=== PATIENT | female | born 2000 | race Caucasian/White ===

== ENCOUNTER 2020-11-24 15:47 | Inpatient (IN) | payer OTHER ==
[~2020-11-24] VITALS: Ht 157.5 cm; Wt 71.2 kg
[2020-11-24 20:00] VITALS: BP 122/68
[2020-11-24] MEDS ORDERED: CYCLOBENZAPRINE HCL 10 MG TABLET PO PRN (20:00)
[2020-11-24] MEDS ORDERED: ONDANSETRON HCL 4 MG TABLET PO PRN (20:00)
[2020-11-24] MEDS ORDERED: OxyCODONE HCL 10 MG IR TABLET PO PRN (20:00)
[2020-11-24] MEDS ORDERED: ACETAMINOPHEN 500 MG TABLET PO PRN (20:00)
[2020-11-24 20:44] VITALS: BP 122/68
[2020-11-24] MEDS: GABAPENTIN 300 MG CAPSULE PO SCH (21:04)
[2020-11-24] MEDS: DOCUSATE SODIUM 100 MG CAPSULE PO SCH (21:04)
[2020-11-24] MEDS: AMITRIPTYLINE HCL 10 MG TABLET PO SCH (21:05)
[2020-11-24] MEDS: OxyCODONE HCL 5 MG IR TABLET PO PRN (22:37)
[2020-11-24 23:37] VITALS: BP 110/62
[2020-11-24] MEDS ORDERED: SODIUM CL IRRIG SOLN BOTTLE 250 ML IRRIG ONE (23:40)
[2020-11-25 07:09] LABS: BASOPHILS % (AUTO) 0.5 % (0.0-2.0); EOSINOPHILS % (AUTO) 6.9 % (1.0-6.0); HEMATOCRIT 21.8 % (36-46); HEMOGLOBIN 7.2 g/dL (12.0-16.0); LYMPHOCYTES # (AUTO) 1.2 K/uL (1.0-4.8); LYMPHOCYTES % (AUTO) 15.5 % (22.0-44.0); MEAN CORPUSCULAR VOLUME 88 fL (80-100); MONOCYTES # (AUTO) 0.8 K/uL (0.1-1.0); MONOCYTES % (AUTO) 9.7 % (2.0-9.0); NEUTROPHILS # (AUTO) 5.3 K/uL (1.8-7.7); NEUTROPHILS % (AUTO) 67.4 % (40.0-70.0); PLATELET COUNT (AUTO) 295 K/uL (150-450); RED BLOOD CELL COUNT(AUTO) 2.47 MIL/uL (4.00-5.20); RED CELL DISTRIBUTION WIDTH 13.6 % (11.5-14.5)
[2020-11-25 07:18] LABS: ALANINE AMINOTRANSFERASE 50 U/L (12-78); ALBUMIN 3.1 g/dL (3.4-5.0); ALKALINE PHOSPHATASE 43 U/L (46-116); ANION GAP 9 mmol/L (8-16); ASPARTATE AMINOTRANSFERASE 52 U/L (15-37); BILIRUBIN,TOTAL 0.5 mg/dL (0.1-1.0); CALCIUM, TOTAL 8.7 mg/dL (8.8-10.5); CARBON DIOXIDE 25 mmol/L (22-29); CHLORIDE 106 mmol/L (98-107); CREATININE 0.77 mg/dL (0.60-1.30); GLOMERULAR FILTR. RATE CALC > 60 mL/min (>60); GLUCOSE,RANDOM 100 mg/dL (70-110); POTASSIUM 4.2 mmol/L (3.5-5.1); SODIUM SERUM 140 mmol/L (136-145); TOTAL PROTEIN, SERUM 6.5 g/dL (6.4-8.2); UREA NITROGEN, BLOOD 14 mg/dL (7-18)
[2020-11-25 07:44] VITALS: BP 105/60
[2020-11-25] MEDS: GABAPENTIN 300 MG CAPSULE PO SCH ×3 (08:47→20:07)
[2020-11-25] MEDS: ASPIRIN 325 MG TABLET PO SCH (08:47)
[2020-11-25] MEDS: POLYETHYLENE GLYCOL 3350 17 GM PACKET PO SCH (08:48)
[2020-11-25] MEDS: DOCUSATE SODIUM 100 MG CAPSULE PO SCH ×2 (08:48→20:13)
[2020-11-25] MEDS ORDERED: MAGNESIUM CITRATE 300 ML ORAL SOLUTION PO ONE (11:45)
[2020-11-25] MEDS: IBUPROFEN 800 MG TABLET PO PRN (13:34)
[2020-11-25 16:14] VITALS: BP 104/55
[2020-11-25] MEDS: AMITRIPTYLINE HCL 10 MG TABLET PO SCH (20:03)
[2020-11-25] MEDS ORDERED: LUBIPROSTONE 24 MCG CAPSULE PO SCH (21:00)
[2020-11-26 03:30] VITALS: BP 116/58
[2020-11-26] MEDS: IBUPROFEN 800 MG TABLET PO PRN ×2 (05:28→15:11)
[2020-11-26] MEDS: LUBIPROSTONE 24 MCG CAPSULE PO SCH ×2 (07:30→09:21)
[2020-11-26] MEDS: POLYETHYLENE GLYCOL 3350 17 GM PACKET PO SCH (09:00)
[2020-11-26] MEDS: DOCUSATE SODIUM 100 MG CAPSULE PO SCH ×2 (09:22→20:38)
[2020-11-26] MEDS: GABAPENTIN 300 MG CAPSULE PO SCH ×3 (09:22→20:38)
[2020-11-26] MEDS: ASPIRIN 325 MG TABLET PO SCH (09:22)
[2020-11-26 09:30] VITALS: BP 121/71
[2020-11-26] MEDS: OxyCODONE HCL 5 MG IR TABLET PO PRN (11:52)
[2020-11-26 13:16] LABS: BASOPHILS % (AUTO) 0.6 % (0.0-2.0); EOSINOPHILS % (AUTO) 4.8 % (1.0-6.0); HEMATOCRIT 25.8 % (36-46); HEMOGLOBIN 8.6 g/dL (12.0-16.0); LYMPHOCYTES # (AUTO) 1.4 K/uL (1.0-4.8); MEAN CORPUSCULAR HEMOGLOBIN 28.7 pg (26.0-34.0); MEAN CORPUSCULAR HGB CONC 33.4 G/dL (31.0-37.0); MEAN CORPUSCULAR VOLUME 86 fL (80-100); MONOCYTES # (AUTO) 0.5 K/uL (0.1-1.0); MONOCYTES % (AUTO) 4.8 % (2.0-9.0); NEUTROPHILS # (AUTO) 7.4 K/uL (1.8-7.7); NEUTROPHILS % (AUTO) 75.8 % (40.0-70.0); PLATELET COUNT (AUTO) 402 K/uL (150-450); RED CELL DISTRIBUTION WIDTH 14.3 % (11.5-14.5)
[2020-11-26 15:11] VITALS: BP 126/65
[2020-11-26] MEDS: FERROUS GLUCONATE 324 MG TABLET PO SCH (17:37)
[2020-11-26] MEDS: ACETAMINOPHEN 325 MG TABLET PO PRN (18:41)
[2020-11-26] MEDS: AMITRIPTYLINE HCL 10 MG TABLET PO SCH (20:38)
[2020-11-27] VITALS: BP 94/55
[2020-11-27] MEDS ORDERED: AMIT75 PO (03:11)
[2020-11-27] MEDS: FERROUS GLUCONATE 324 MG TABLET PO SCH ×2 (07:17→16:53)
[2020-11-27 07:26] LABS: BASOPHILS % (AUTO) 0.4 % (0.0-2.0); EOSINOPHILS % (AUTO) 6.4 % (1.0-6.0); HEMATOCRIT 23.1 % (36-46); HEMOGLOBIN 7.4 g/dL (12.0-16.0); LYMPHOCYTES # (AUTO) 1.1 K/uL (1.0-4.8); MEAN CORPUSCULAR HEMOGLOBIN 28.9 pg (26.0-34.0); MEAN CORPUSCULAR HGB CONC 32.3 G/dL (31.0-37.0); MEAN CORPUSCULAR VOLUME 90 fL (80-100); MONOCYTES # (AUTO) 0.8 K/uL (0.1-1.0); MONOCYTES % (AUTO) 8.8 % (2.0-9.0); NEUTROPHILS # (AUTO) 6.2 K/uL (1.8-7.7); NEUTROPHILS % (AUTO) 71.4 % (40.0-70.0); PLATELET COUNT (AUTO) 363 K/uL (150-450); RED BLOOD CELL COUNT(AUTO) 2.58 MIL/uL (4.00-5.20); RED CELL DISTRIBUTION WIDTH 14.9 % (11.5-14.5)
[2020-11-27 08:30] VITALS: BP 108/63
[2020-11-27] MEDS: ASPIRIN 325 MG TABLET PO SCH (08:34)
[2020-11-27] MEDS: DOCUSATE SODIUM 100 MG CAPSULE PO SCH ×2 (08:34→20:26)
[2020-11-27] MEDS: IBUPROFEN 800 MG TABLET PO PRN ×2 (08:34→16:30)
[2020-11-27] MEDS: GABAPENTIN 300 MG CAPSULE PO SCH ×3 (08:34→20:26)
[2020-11-27] MEDS ORDERED: AMIT10TA6 PO (11:12)
[2020-11-27] MEDS: ACETAMINOPHEN 325 MG TABLET PO PRN (12:34)
[2020-11-27 15:20] VITALS: BP 123/70
[2020-11-27] MEDS: FAMOTIDINE 20 MG TABLET PO SCH (16:29)
[2020-11-27] MEDS: AMITRIPTYLINE HCL 10 MG TABLET PO SCH (20:26)
[2020-11-28] MEDS ORDERED: ASPI-989 PO (03:14)
[2020-11-28] MEDS ORDERED: DOCU-275 PO (03:14)
[2020-11-28] MEDS ORDERED: GABA-1181 PO (03:14)
[2020-11-28] MEDS: FAMOTIDINE 20 MG TABLET PO SCH ×2 (05:55→17:24)
[2020-11-28 06:00] VITALS: BP 104/58
[2020-11-28 08:00] VITALS: BP 98/52
[2020-11-28] MEDS: ASPIRIN 325 MG TABLET PO SCH (08:25)
[2020-11-28] MEDS: FERROUS GLUCONATE 324 MG TABLET PO SCH ×2 (08:25→17:24)
[2020-11-28] MEDS: DOCUSATE SODIUM 100 MG CAPSULE PO SCH ×2 (08:26→20:29)
[2020-11-28] MEDS: GABAPENTIN 300 MG CAPSULE PO SCH ×3 (08:26→20:28)
[2020-11-28] MEDS: IBUPROFEN 800 MG TABLET PO PRN ×2 (08:27→17:28)
[2020-11-28 16:33] VITALS: BP 128/68
[2020-11-28] MEDS: AMITRIPTYLINE HCL 10 MG TABLET PO SCH (20:28)
[2020-11-28] MEDS: ACETAMINOPHEN 325 MG TABLET PO PRN (21:34)
[2020-11-29 06:06] VITALS: BP 109/62
[2020-11-29 07:17] LABS: BASOPHILS % (AUTO) 0.5 % (0.0-2.0); EOSINOPHILS % (AUTO) 6.7 % (1.0-6.0); HEMATOCRIT 23.7 % (36-46); HEMOGLOBIN 7.9 g/dL (12.0-16.0); LYMPHOCYTES # (AUTO) 1.6 K/uL (1.0-4.8); LYMPHOCYTES % (AUTO) 15.1 % (22.0-44.0); MEAN CORPUSCULAR HEMOGLOBIN 29.7 pg (26.0-34.0); MEAN CORPUSCULAR HGB CONC 33.2 G/dL (31.0-37.0); MEAN CORPUSCULAR VOLUME 90 fL (80-100); MONOCYTES # (AUTO) 0.8 K/uL (0.1-1.0); MONOCYTES % (AUTO) 7.5 % (2.0-9.0); NEUTROPHILS # (AUTO) 7.3 K/uL (1.8-7.7); NEUTROPHILS % (AUTO) 70.2 % (40.0-70.0); PLATELET COUNT (AUTO) 459 K/uL (150-450); RED BLOOD CELL COUNT(AUTO) 2.64 MIL/uL (4.00-5.20); RED CELL DISTRIBUTION WIDTH 15.3 % (11.5-14.5)
[2020-11-29 07:29] VITALS: BP 122/78
[2020-11-29 07:48] LABS: % IRON SATURATION 14.5 % (22-44)
[2020-11-29 08:00] VITALS: BP 122/75
[2020-11-29] MEDS: ASPIRIN 325 MG TABLET PO SCH (09:04)
[2020-11-29] MEDS: GABAPENTIN 300 MG CAPSULE PO SCH ×3 (09:04→20:35)
[2020-11-29] MEDS: DOCUSATE SODIUM 100 MG CAPSULE PO SCH ×2 (09:04→20:35)
[2020-11-29] MEDS: FERROUS GLUCONATE 324 MG TABLET PO SCH ×2 (09:04→17:34)
[2020-11-29] MEDS: FAMOTIDINE 20 MG TABLET PO SCH ×2 (09:04→17:34)
[2020-11-29] MEDS: IBUPROFEN 800 MG TABLET PO PRN ×2 (09:09→17:38)
[2020-11-29] MEDS: ACETAMINOPHEN 325 MG TABLET PO PRN (15:22)
[2020-11-29 17:38] VITALS: BP 128/63
[2020-11-29] MEDS: AMITRIPTYLINE HCL 10 MG TABLET PO SCH (20:35)
[2020-11-30 05:29] VITALS: BP 122/65
[2020-11-30] MEDS: FAMOTIDINE 20 MG TABLET PO SCH ×2 (05:29→17:29)
[2020-11-30] MEDS: GABAPENTIN 300 MG CAPSULE PO SCH ×3 (05:29→20:56)
[2020-11-30] MEDS: IBUPROFEN 800 MG TABLET PO PRN ×2 (05:29→14:15)
[2020-11-30] MEDS ORDERED: ERGOCALCIFEROL (VIT D2) 50,000 UNITS [1,250 MCG] CAPSULE PO SCH (09:00)
[2020-11-30 09:30] VITALS: BP 139/66
[2020-11-30] MEDS: MULTIVITAMINS WITH MINERALS, THERAPEUTIC TABLET PO SCH (09:42)
[2020-11-30] MEDS: FERROUS GLUCONATE 324 MG TABLET PO SCH ×2 (09:42→17:29)
[2020-11-30] MEDS: DOCUSATE SODIUM 100 MG CAPSULE PO SCH ×3 (09:43→21:00)
[2020-11-30] MEDS: ASPIRIN 325 MG TABLET PO SCH (09:43)
[2020-11-30 16:59] VITALS: BP 110/52
[2020-11-30] MEDS: AMITRIPTYLINE HCL 10 MG TABLET PO SCH (20:56)
[2020-11-30] MEDS: ACETAMINOPHEN 325 MG TABLET PO PRN (21:00)
[2020-11-30] MEDS ORDERED: MULT-1239 PO (21:12)
[2020-11-30] MEDS ORDERED: FAMO20 PO (21:12)
[2020-11-30] MEDS ORDERED: FERR325T21 PO (21:12)
[2020-11-30] MEDS ORDERED: ERGO500054 PO (21:12)
[2020-11-30] MEDS ORDERED: IBUP-2071 PO (21:12)
[2020-12-01] VITALS: BP 112/72
[2020-12-01] MEDS: FAMOTIDINE 20 MG TABLET PO SCH (06:08)
[2020-12-01 07:53] VITALS: BP 109/63
[2020-12-01] MEDS: GABAPENTIN 300 MG CAPSULE PO SCH (08:22)
[2020-12-01] MEDS: MULTIVITAMINS WITH MINERALS, THERAPEUTIC TABLET PO SCH (08:22)
[2020-12-01] MEDS: ASPIRIN 325 MG TABLET PO SCH (08:23)
[2020-12-01] MEDS: DOCUSATE SODIUM 100 MG CAPSULE PO SCH (08:23)
[2020-12-01] MEDS: FERROUS GLUCONATE 324 MG TABLET PO SCH (08:23)
[2020-12-01] MEDS: IBUPROFEN 800 MG TABLET PO PRN (08:27)
== END 2020-12-01 12:00 | disposition home or self-care (01) | DRG 534 ==
LOC: 2WR 18:18
PROVIDERS: ADMIT Physical Medicine & Rehabilitation; ATTEND Physical Medicine & Rehabilitation
DX: S72.92XA Unspecified fracture of left femur, initial encounter for closed fracture (principal); E46 Unspecified protein-calorie malnutrition; S92.214A Nondisplaced fracture of cuboid bone of right foot, initial encounter for closed fracture; S62.330A Displaced fracture of neck of second metacarpal bone, right hand, initial encounter for closed fracture; S82.302A Unspecified fracture of lower end of left tibia, initial encounter for closed fracture; V89.2XXA Person injured in unspecified motor-vehicle accident, traffic, initial encounter; Z68.28 Body mass index [BMI] 28.0-28.9, adult; Z88.0 Allergy status to penicillin; Z91.040 Latex allergy status; D64.9 Anemia, unspecified; E55.9 Vitamin D deficiency, unspecified; K59.00 Constipation, unspecified
CPT/HCPCS: 82271; 83540; 83550; 84443; 87081; 93005; 93970; 97110; 97112; 97116; 97163; 97166; 97530; 97535; 99366